=== PATIENT | male | born 1945 | race Caucasian/White ===

== ENCOUNTER 2018-04-29 13:55 | Day surgery (SDC) | payer OTHER, MEDICARE ==
[~2018-04-29] VITALS: Ht 185.4 cm; Wt 144.1 kg
[2018-04-29 14:15] VITALS: BP 146/80
[2018-04-29] MEDS ORDERED: LIDOcaine 1% w/EPI 1:200,000 10 ML, BUPIVAcaine 2.5mg/ml /PF 25 MG SQ ONE ×2 (14:25)
[2018-04-29] MEDS ORDERED: normal saline 1000ml 1,000 ML IV SCH (14:25)
[2018-04-29] MEDS ORDERED: CHOL10008 PO (14:56)
[2018-04-29] MEDS ORDERED: DABI75CA3 PO (14:57)
[2018-04-29] MEDS ORDERED: FINA5TAB11 PO (14:57)
[2018-04-29] MEDS ORDERED: ATOR80TA PO (14:58)
[2018-04-29] MEDS ORDERED: CARB15DR95 OP (14:59)
[2018-04-29] MEDS ORDERED: FLUO20CA39 PO (15:00)
[2018-04-29] MEDS ORDERED: LISI10TA4 PO (15:00)
[2018-04-29] MEDS ORDERED: OMEP40CA37 PO (15:02)
[2018-04-29] MEDS ORDERED: METF-438 PO (15:02)
[2018-04-29] MEDS ORDERED: OXYB5TAB29 PO (15:03)
[2018-04-29] MEDS ORDERED: LYR75C PO (15:04)
[2018-04-29] MEDS ORDERED: FLO0.4C PO (15:05)
[2018-04-29] MEDS ORDERED: TRAM50TA2 PO (15:06)
[2018-04-29] MEDS ORDERED: LIDOcaine 1% (10mg/ml)w/preservative injection 20ml MDV ONE (17:07)
[2018-04-29 17:25] VITALS: BP 140/79
[2018-04-29 17:45] VITALS: BP 142/81
== END 2018-04-29 18:00 | disposition home or self-care (01) ==
LOC: SSTAY O 13:55
PROVIDERS: ATTEND Internal Medicine Interventional Cardiology
DX: Z45.09 Encounter for adjustment and management of other cardiac device (principal); R55 Syncope and collapse; E78.5 Hyperlipidemia, unspecified; I10 Essential (primary) hypertension; I48.91 Unspecified atrial fibrillation; E11.40 Type 2 diabetes mellitus with diabetic neuropathy, unspecified; N40.0 Benign prostatic hyperplasia without lower urinary tract symptoms; F32.9 Major depressive disorder, single episode, unspecified; Z98.890 Other specified postprocedural states; Z79.84 Long term (current) use of oral hypoglycemic drugs
CPT/HCPCS: 33285; 82948; 93005; C1764; J2001; J3490; J7030